=== PATIENT | female | born 2000 | race Caucasian/White ===

== ENCOUNTER 2024-11-18 08:06 | Outpatient (CLI) | payer BC, SELFPAY ==
--- NOTE | 2024-11-18 08:15 | CRLHL7_ITS ---
For Patients: As a result of the 21st Century Cures Act, medical imaging exams and procedure reports are released immediately into your electronic medical record. You may view this report before your referring provider. If you have questions, please contact your health care provider. LMP: 06/30/2024. DANYEL by LMP: 04/06/2025. GA: 20w, 1d. INDICATION: screen. CERVIX: Visualized. Measurement: 4.9 TA. POSITIONING: Vertex AMNIOTIC FLUID: 3.5 cm SDP. PLACENTA: Technique: Transabdominal. PLACENTA POSITION: Posterior. Placenta tip to internal os: 3.2 cm. Umbilical cord: 3-vessel cord. Placental insertion: Central. Biometry: BPD: 4.7 cm. 20w, 1d, 47 percent. HC: 17.8 cm. 20w, 2d, 48 percent. AC: 16.5 cm. 21w, 4d, 85 percent. FL: 3.2 cm. 20w, 0d, 39 percent. FL/AC ratio: 19.61 percent. HC/AC ratio: 1.08. SURVEY: Observed Structures Cerebellum: Yes. 2.1 cm; 20w 6d. Cisterna Magna: Yes. 6.1 mm. Nuchal Fold: Yes. 4.2 mm. Lateral Ventricle: Yes. 8.1 mm. CSP: Yes. Midline Falx: Yes. Choroid Plexus: Yes. Spine: Yes. Stomach: Yes. Abd Cord Insertion: Yes. Urinary Bladder: Yes. Kidneys: Yes. Diaphragm: Yes. Nose/lips: Yes. Orbital view: Yes. Profile: Yes. Upper Extremities: Yes. Lower Extremities: Yes. Hands: Yes. Feet: Yes. Four-Chamber Heart: Yes. LVOT: Yes. RVOT: Yes. 3VV: Yes. 3VTV: Yes. age by this US: 20w 4d. DANYEL by this US: 04/03/2025. EFW: 376 g. Weight: 0 lbs, 13 oz. Percentile by DANYEL: 80 percent. IMPRESSION: 1. Normal anatomic survey. 2. Concordance of clinical and sonographic dating. 3. Residual blood products are present within the lower uterine segment adjacent to the placenta which measures 4.7 x 1.9 x 3.4 cm. 4. No previa. The placental edge is located 3.2 cm from the internal cervical os. Hossein Cordon M.D. Diagnostic Radiologist [email or web address] bM/Dictated by: Hossein Cordon MD @ 11/18/2024 3:39:00 PM (Electronically Signed)
== END 2024-11-18 08:07 | disposition home or self-care (01) ==
LOC: US 08:07
PROVIDERS: Visit Provider Registered Nurse
DX: Z34.92 Encounter for supervision of normal pregnancy, unspecified, second trimester (principal); Z3A.20 20 weeks gestation of pregnancy
CPT/HCPCS: 76805

== ENCOUNTER 2025-01-13 12:25 | Outpatient (CLI) | payer BC, SELFPAY | END 2025-01-13 12:26 | disposition home or self-care (01) | LOC: NFLDREF 01-17 09:59 | PROVIDERS: Visit Provider Obstetrics & Gynecology | DX: Z34.93 Encounter for supervision of normal pregnancy, unspecified, third trimester (principal) | CPT/HCPCS: 86592; 86787 ==

== ENCOUNTER 2025-02-26 02:52 | Outpatient (CLI) | payer BC, SELFPAY ==
[2025-02-26 03:18] VITALS: PULSE 114; O2SAT 96
[2025-02-26 03:20] VITALS: BP 121/68; PULSE 105; TEMP 37.1
[2025-02-26 03:37] VITALS: TEMP 37.1
[2025-02-26] MEDS: ACETAMINOPHEN 500 MG TABLET 1000 MG PO (03:37)
[2025-02-26 04:02] VITALS: PULSE 102; O2SAT 96
[2025-02-26 05:07] LABS: PCR FLU A POSITIVE PCR FLU A (Negative); PCR FLU B Negative PCR FLU B (Negative); PCR RSV Negative PCR RSV (Negative); SARS PCR* Negative SARS-CoV-2 (Negative)
[2025-02-26 05:23] VITALS: TEMP 36.9
[2025-02-26] MEDS: OSELTAMIVIR PHOSPHATE 75 MG CAPSULE PO (05:59)
--- NOTE | 2025-02-26 07:34 | PC.OBNST ---
NST Note NST Note Start: 02/26/25 02:57 Freq: ONCE Status: Active Protocol: Document 02/26/25 06:20 FJZ (Rec: 02/26/25 07:33 FJZ No Response) NST Note 2 Para (# of births) 0 EDC 04/06/25 Gestational Age In 34 Weeks & 3 Days Weeks & Days Patient Presented Decreased movement,Other with Complaint(s) of Other Complaints low grade fever at home. Influenza A positive Reactive Yes ISABEL Schulz RN Date 02/26/25 Reactive Yes ISABEL Toledo RN Date 02/26/25 OB NST charge Yes Complete NST Note Yes via Write Note The provider's electronic signature indicates the NST is reactive/appropriate for gestational age. *Note to provider: If an addendum is required, open the patient's chart and click on the note under the Nurse/Allied Health tab.
== END 2025-02-26 06:20 | disposition home or self-care (01) ==
LOC: OB OUT 02:53 → OB 02:54
PROVIDERS: Visit Provider Advanced Practice Midwife
DX: O36.8130 Decreased fetal movements, third trimester, not applicable or unspecified (principal); Z3A.34 34 weeks gestation of pregnancy
CPT/HCPCS: 59025; 87631; 87635; G0463; A9270